=== PATIENT | female | born 1990 | race African-American/Black ===

== ENCOUNTER 2017-07-06 14:01 | Emergency (ER) | payer OTHER, SELFPAY | END 2017-07-06 15:37 | disposition home or self-care (01) | LOC: SCSER 14:01 | DX: J02.0 Streptococcal pharyngitis (principal); B34.9 Viral infection, unspecified; F31.9 Bipolar disorder, unspecified; F17.210 Nicotine dependence, cigarettes, uncomplicated | CPT/HCPCS: 99283 ==